=== PATIENT | male | born 1955 | race Caucasian/White ===

== ENCOUNTER → 2017-11-23 | Outpatient (CLI) | payer OTHER | END | disposition home or self-care (01) | LOC: NM 12:45 | DX: I20.9 Angina pectoris, unspecified (principal); I25.2 Old myocardial infarction | CPT/HCPCS: 93017 ==

== ENCOUNTER → 2018-01-01 | Outpatient (CLI) | payer OTHER ==
[2018-01-01 13:12] LABS: ANION GAP 6 (6-14); BLOOD UREA NITROGEN 18 mg/dL (8-26); CALCIUM 8.9 mg/dL (8.5-10.1); CARBON DIOXIDE 30 mmol/L (21-32); CHLORIDE 105 mmol/L (98-107); CREATININE 1.6 mg/dL (0.7-1.3); GFR 43.7; GLUCOSE 97 mg/dL (70-99); POTASSIUM 4.5 mmol/L (3.5-5.1); SODIUM 141 mmol/L (136-145)
== END | disposition home or self-care (01) ==
LOC: SPEC 12:42
DX: I13.0 Hypertensive heart and chronic kidney disease with heart failure and stage 1 through stage 4 chronic kidney disease, or unspecified chronic kidney disease (principal); I50.9 Heart failure, unspecified; N18.9 Chronic kidney disease, unspecified
CPT/HCPCS: 36415; 80048

== ENCOUNTER → 2018-01-02 | Outpatient (CLI) | payer OTHER | END | disposition home or self-care (01) | LOC: US 14:38 | DX: M79.89 Other specified soft tissue disorders (principal) | CPT/HCPCS: 93970 ==

== ENCOUNTER → 2018-01-04 | Outpatient (CLI) | payer OTHER | END | disposition home or self-care (01) | LOC: RAD 11:55 | DX: J98.11 Atelectasis (principal); Z95.1 Presence of aortocoronary bypass graft | CPT/HCPCS: 71046 ==

== ENCOUNTER → 2018-05-03 | Outpatient (CLI) | payer OTHER | END | disposition home or self-care (01) | LOC: KCIC 11:21 | DX: M47.892 Other spondylosis, cervical region (principal); M77.8 Other enthesopathies, not elsewhere classified; I13.0 Hypertensive heart and chronic kidney disease with heart failure and stage 1 through stage 4 chronic kidney disease, or unspecified chronic kidney disease; E11.22 Type 2 diabetes mellitus with diabetic chronic kidney disease; I50.22 Chronic systolic (congestive) heart failure; N18.3 Chronic kidney disease, stage 3 (moderate); I25.10 Atherosclerotic heart disease of native coronary artery without angina pectoris; E78.5 Hyperlipidemia, unspecified; I25.2 Old myocardial infarction; E78.00 Pure hypercholesterolemia, unspecified; Z86.2 Personal history of diseases of the blood and blood-forming organs and certain disorders involving the immune mechanism; Z86.73 Personal history of transient ischemic attack (TIA), and cerebral infarction without residual deficits; Z82.3 Family history of stroke; Z80.3 Family history of malignant neoplasm of breast; Z80.6 Family history of leukemia; Z83.3 Family history of diabetes mellitus | CPT/HCPCS: 72050 ==

== ENCOUNTER → 2018-09-11 | Outpatient (CLI) | payer OTHER ==
[2017-12-11 11:03] VITALS: BP 104/65
[~2018-09-11] MED LIST: ASPI-612 PO; ASPI325T11 PO; ATOR40TA59 PO; FURO40TA4 PO; GLIP10TA13 PO; IBUP-1060 PO; INSU100V13 SQ; LISI1TAB7 PO; METF10007 PO; METF500T16 PO; METO25TA4 PO; OXYC1TAB15 PO; POTA20TA4 PO; PRAV20TA2 PO; [UNRECOGNIZED DRUG - OTHER] PO
--- NOTE | 2018-09-12 08:11 | CARD ---
MR#: [id number] Date of Study: 09/11/2018 Ordering Physician: CARLOS PALAFOX, Referring Physician: CARLOS PALAFOX, Tech: Melissa Daniel APPROVED REPORT EXAM: Two-dimensional and M-mode echocardiogram with Doppler and color Doppler. Other Information Quality : AverageHR: 81bpm INDICATION CAD RISK FACTORS Hypertension Hyperlipidemia Diabetes 2D DIMENSIONS RVDd3.7 (2.9-3.5cm)Left Atrium(2D)3.5 (1.6-4.0cm) IVSd1.4 (0.7-1.1cm)Aortic Root(2D)2.8 (2.0-3.7cm) LVDd4.6 (3.9-5.9cm)LVOT Diameter2.1 (1.8-2.4cm) PWd1.3 (0.7-1.1cm)LVDs2.8 (2.5-4.0cm) FS (%) 39.5 %SV66.8 ml LVEF(%)70.1 (>50%) Aortic Valve AoV Peak Jose.149.1cm/sAoV VTI27.5cm AO Peak GR.8.9mmHgLVOT Peak Jose.103.3cm/s LVOT VTI 20.99cmAO Mean GR.4mmHg JACKELINE (VMAX)1.26ea7PXD (VTI)2.72cm2 Mitral Valve MV E Zqaopwae16.3cm/sMV DECEL HGCM535vv MV A Vkakqgqf097.1cm/sMV RHT84kn E/A Ratio0.7MVA (PHT)2.52cm2 TDI E/Lateral E'6.2E/Medial E'12.2 Pulmonary Valve PV Peak Wnrtmpto521.8cm/sPV Peak Grad.7mmHg Tricuspid Valve RAP [id number] Pulmonary Vein S1 Akhicbyw87.1cm/sD2 Mxxgxtmt98.2cm/s PVa ykcrmrmw432jlwj LEFT VENTRICLE The left ventricle is normal size. There is moderate concentric left ventricular hypertrophy. The lef t ventricular systolic function is normal. The Ejection Fraction is 60-65%. There is normal LV segmen jeramy wall motion. Transmitral Doppler flow pattern is Grade I-abnormal relaxation pattern. RIGHT VENTRICLE The right ventricle is normal size. There is normal right ventricular wall thickness. The right ventr icular systolic function is normal. ATRIA The left atrium size is normal. The right atrium size is normal. The interatrial septum is intact wit h no evidence for an atrial septal defect or patent foramen ovale as noted on 2-D or Doppler imaging. AORTIC VALVE The aortic valve is normal in structure and function. Doppler and Color Flow revealed no significant aortic regurgitation. There is no significant aortic valvular stenosis. MITRAL VALVE The mitral valve is normal in structure and function. There is no evidence of mitral valve prolapse. There is no mitral valve stenosis. Doppler and Color Flow revealed no mitral valve regurgitation note d. TRICUSPID VALVE The tricuspid valve is normal. Doppler and Color Flow revealed trace tricuspid regurgitation. There i s no tricuspid valve stenosis. PULMONIC VALVE The pulmonic valve is not well visualized. Doppler and Color Flow revealed trace to mild pulmonic benigno vular regurgitation. GREAT VESSELS The aortic root is normal in size. The IVC is normal in size and collapses >50% with inspiration. PERICARDIAL EFFUSION There is no evidence of significant pericardial effusion. Critical Notification Critical Value: No <Conclusion> Technically difficult study. The left ventricular systolic function is normal. The Ejection Fraction is 60-65%. There is normal LV segmental wall motion. Transmitral Doppler flow pattern is Grade I-abnormal relaxation pattern. Doppler and Color Flow revealed trace tricuspid regurgitation. There is no evidence of significant pericardial effusion. Signed by : Carlos Palafox, Electronically Approved : 09/12/2018 08:09:59
== END | disposition home or self-care (01) ==
LOC: ECHO 13:48
PROVIDERS: ATTEND Internal Medicine Cardiovascular Disease
DX: I11.9 Hypertensive heart disease without heart failure (principal); I37.1 Nonrheumatic pulmonary valve insufficiency; I25.810 Atherosclerosis of coronary artery bypass graft(s) without angina pectoris; E78.5 Hyperlipidemia, unspecified; E11.9 Type 2 diabetes mellitus without complications
CPT/HCPCS: 93306

== ENCOUNTER → 2018-10-21 | Outpatient (CLI) | payer OTHER ==
[2017-12-11 11:03] VITALS: BP 104/65
[~2018-10-21] MED LIST changes: +CONTRAST GIVEN. MC PRN; +IOHEXOL 300 MG/ML 100ML VIAL. IV ONE
[2018-10-21 10:04] LABS: CREATININE 1.5 mg/dL (0.7-1.3)
--- NOTE | 2018-10-21 10:58 | RAD ---
PQRS Compliance Statement: One or more of the following individualized dose reduction techniques were utilized for this examination: 1. Automated exposure control 2. Adjustment of the mA and/or kV according to patient size 3. Use of iterative reconstruction technique CT chest with contrast October 13, 2017 INDICATION: Chronic cough. COMPARISON: CT chest December 03, 2017 TECHNIQUE: Multiple axial CT images of the chest were obtained after the intravenous demonstration of 60 cc Omnipaque 300. Coronal and sagittal reformats are provided. FINDINGS: The thyroid gland is normal in appearance. There are no pathologically enlarged axillary, mediastinal or hilar lymph nodes. Precarinal lymph node measures 8 mm by short axis with a normal fatty hilum. There is a prevascular lymph node which measures 7 mm by short axis. Bilateral axillary lymph nodes have normal fatty hilus without significant cortical thickening. Median sternotomy changes are present. Heart size is borderline enlarged. There is no pericardial effusion. Ascending thoracic aorta is normal in caliber measuring up to 3.0 cm. Thoracic esophagus is normal in appearance. Bandlike density at the right lung base most favors subsegmental atelectasis. Similar findings are identified in the inferior lingula. No new or enlarging solid noncalcified pulmonary nodules are identified. There are no pleural effusions. No pulmonary vascular congestion or pneumothorax. Focal groundglass change in the right middle lobe is suggestive of visualization of the minor fissure en face. Stable indeterminate hypoattenuating lesion in the right hepatic lobe measuring 13 mm which measures higher than that of simple fluid. Calcified gallstones are identified at the gallbladder. Spleen is nonenlarged. No suspicious pancreatic lesion is identified. Adrenal glands are normal in appearance. No suspicious osseous abnormality is identified. IMPRESSION: 1. Right paratracheal/precarinal lymph node is borderline in size, stable. There is a normal fatty hilum. Findings most favor benign reactive etiology. 2. No new or enlarging solid noncalcified pulmonary nodule is identified. 3. There is subsegmental atelectasis at the right lung base and inferior lingula. 4. Stable hypoattenuating lesion in the right hepatic dome measuring 13 mm. Finding remains indeterminate. 5. Cholelithiasis. Electronically signed by: Ericka Page MD (10/21/2018 10:54 AM) [facility]
== END | disposition home or self-care (01) ==
LOC: CT 15:36
PROVIDERS: ATTEND Family Medicine
DX: J98.11 Atelectasis (principal); K76.89 Other specified diseases of liver; K80.20 Calculus of gallbladder without cholecystitis without obstruction; R59.0 Localized enlarged lymph nodes
CPT/HCPCS: 36415; 71260; 82565; Q9967

== ENCOUNTER → 2019-11-12 | Outpatient (CLI) | payer OTHER ==
[2017-12-11 11:03] VITALS: BP 104/65
[~2019-11-12] MED LIST changes: -CONTRAST GIVEN. MC PRN; -IOHEXOL 300 MG/ML 100ML VIAL. IV ONE; +LISI1TAB20 PO; -LISI1TAB7 PO
--- NOTE | 2019-11-13 13:36 | CARD ---
MR#: [id number] Date of Study: 11/12/2019 Ordering Physician: CARLOS SÁNCHEZ, Referring Physician: CALROS SÁNCHEZ, Tech: Alee Gaming RDCS APPROVED REPORT EXAM: Two-dimensional and M-mode echocardiogram with Doppler and color Doppler. Other Information Quality : AverageHR: 64bpm Rhythm : NSR INDICATION CAD RISK FACTORS Hypertension Obesity Hyperlipidemia Diabetes 2D DIMENSIONS RVDd3.5 (2.9-3.5cm)IVSd1.3 (0.7-1.1cm) Aortic Root(2D)3.3 (2.0-3.7cm)LVDd4.2 (3.9-5.9cm) LVOT Diameter2.1 (1.8-2.4cm)PWd1.4 (0.7-1.1cm) LVDs3.2 (2.5-4.0cm)FS (%) 23.7 % SV37.2 mlLVEF(%)47.8 (>50%) Aortic Valve AoV Peak Jose.122.6cm/Mayuri Peak GR.6.0mmHg LVOT Peak Jose.76.2cm/sAVA (VMAX)2.12cm2 Mitral Valve MV E Zaxsujzx79.8cm/sMV DECEL GMVP768fj MV A Apapiisz070.5cm/sE/A Ratio0.7 MV A Mvkhtkei249gm Pulmonary Valve PV Peak Gevenazg68.5cm/s Tricuspid Valve RAP PCFZREGZ5ezCi Pulmonary Vein S1 Csgdydnf00.3cm/sD2 Bcwjtstj87.1cm/s PVa rytbcfkt26vnuu LEFT VENTRICLE The left ventricle is normal size. Moderate LVH. The left ventricular systolic function is normal and the ejection fraction is within normal range. The Ejection Fraction is 55%. There is normal LV segme ntal wall motion. Septal motion suggestive of prior CABG. Transmitral Doppler flow pattern is Grade I -abnormal relaxation pattern. There is no ventricular septal defect visualized. RIGHT VENTRICLE The right ventricle is normal size. The right ventricular systolic function is normal. ATRIA The left atrium size is normal. The right atrium size is normal. The interatrial septum is intact wit h no evidence for an atrial septal defect or patent foramen ovale as noted on 2-D or Doppler imaging. AORTIC VALVE The aortic valve is normal in structure and function. Doppler and Color Flow revealed no significant aortic regurgitation. There is no significant aortic valvular stenosis. MITRAL VALVE The mitral valve is normal in structure and function. There is no evidence of mitral valve prolapse. There is no mitral valve stenosis. Doppler and Color Flow revealed no mitral valve regurgitation note d. TRICUSPID VALVE The tricuspid valve is normal in structure and function. Doppler and Color Flow revealed no tricuspid valve regurgitation noted. Unable to assess PA pressure. There is no tricuspid valve stenosis. PULMONIC VALVE The pulmonary valve is normal in structure and function. Doppler and Color Flow revealed trace pulmon ic valvular regurgitation. There is no pulmonic valvular stenosis. GREAT VESSELS The aortic root is normal in size. The ascending aorta is normal in size. The IVC is normal in size a nd collapses >50% with inspiration. PERICARDIAL EFFUSION There is no pleural effusion. There is no evidence of significant pericardial effusion. Critical Notification Critical Value: No <Conclusion> The left ventricular systolic function is normal and the ejection fraction is within normal range. Th e Ejection Fraction is 55%. There is normal LV segmental wall motion. Septal motion suggestive of prior CABG. Moderate LVH. Signed by : Art Curtis, Electronically Approved : 11/12/2019 13:27:19
== END | disposition home or self-care (01) ==
LOC: ECHO 10:54
PROVIDERS: ATTEND Internal Medicine Cardiovascular Disease
DX: I25.810 Atherosclerosis of coronary artery bypass graft(s) without angina pectoris (principal)
CPT/HCPCS: 93306

== ENCOUNTER 2022-01-03 06:53 | Observation (INO) | payer MEDICARE, OTHER ==
[2022-01-03] VITALS (18 sets, daily range): BP systolic 115–229; BP diastolic 61–112
[~2022-01-03] VITALS: Ht 177.8 cm; Wt 117.5 kg
[~2022-01-03 06:53] MED LIST changes: -ASPI-612 PO; +ASPI-886 PO; -LISI1TAB20 PO; +LISI1TAB39 PO; +POTA-121 PO; -POTA20TA4 PO
[2022-01-03 07:22] LABS: HEMATOCRIT 35.6 % (39.0-53.0); RED BLOOD COUNT 3.91 x10^6/uL (4.30-5.70); RED CELL DISTRIBUTION WIDTH 13.9 % (11.5-14.5); WHITE BLOOD COUNT 7.4 x10^3/uL (4.0-11.0)
[2022-01-03 07:32] LABS: PROTHROMBIN TIME PATIENT 13.4 SEC (11.7-14.0)
[2022-01-03 07:40] LABS: CALCIUM 8.4 mg/dL (8.5-10.1); CREATININE 2.2 mg/dL (0.7-1.3); GFR 29.9; POTASSIUM 4.1 mmol/L (3.5-5.1)
[2022-01-03] MEDS ORDERED: IODIXANOL 320 MG/ML 100 ML VIAL. ONE ×2 (07:41→09:01)
[2022-01-03] MEDS ORDERED: LIDOCAINE 1% Multi-Dose 20 ML VIAL. ONE (07:41)
[2022-01-03] MEDS ORDERED: HYDR-2145 PO (08:02)
[2022-01-03] MEDS ORDERED: ACET325T9 PO (08:02)
[2022-01-03] MEDS ORDERED: DULA0.75 SQ (08:02)
[2022-01-03] MEDS ORDERED: ASPI-886 PO (08:02)
[2022-01-03] MEDS ORDERED: TAMS0.4C97 PO (08:02)
[2022-01-03] MEDS ORDERED: LABE100T5 PO (08:02)
[2022-01-03] MEDS ORDERED: OLME20TA17 PO (08:02)
[2022-01-03] MEDS ORDERED: fentaNYL PF VIAL 100 MCG/2 ML VIAL ONE (08:18)
[2022-01-03] MEDS ORDERED: MIDAZOLAM HCL/PF 2 MG/2 ML VIAL. ONE (08:18)
[2022-01-03] MEDS ORDERED: BIVALIRUDIN 250 MG VIAL. IVP ONE ×2 (08:57→09:30)
[2022-01-03] MEDS ORDERED: MIDAZOLAM HCL/PF 2 MG/2 ML VIAL. IV ONE (09:30)
[2022-01-03] MEDS ORDERED: LIDOCAINE 2% Multi-Dose 20 ML VIAL. IJ ONE (09:30)
[2022-01-03] MEDS ORDERED: fentaNYL PF VIAL 100 MCG/2 ML VIAL IV ONE (09:30)
[2022-01-03] MEDS ORDERED: IODIXANOL 320 MG/ML 100 ML VIAL. IART ONE (09:30)
[2022-01-03] MEDS ORDERED: CONTRAST GIVEN. MC PRN (09:30)
[2022-01-03] MEDS ORDERED: ASPIRIN 325 MG TABLET PO ONE (09:30)
[2022-01-03] MEDS ORDERED: CLOPIDOGREL BISULFATE 75 MG TABLET PO ONE (09:30)
[2022-01-03] MEDS ORDERED: IV NORMAL SALINE 1000ML BAG 1,000 ML IV SCH (09:45)
--- NOTE | 2022-01-03 09:47 | PDOC ---
MODERATE SEDATION ASSESSMENT RISKS/ALTERNATIVES Risks/Alternatives Risks and alternatives of this type of sedation and procedure discussed with: RISK/ALTERNATIVES: Patient H & P ON CHART H & P H & P on chart and reviewed for co-morbid conditions and appropriate labs. H&P ON CHART: Yes STATUS PREG STATUS ASSESSED: N/A MEDS/ALLERGIES REVIEWED Meds/Allergies Reviewed Medications and Allergies including time and route of recently administered narcotics and sedatives. MEDS/ALLERGIES REVIEWED: Yes ASA RATING ASA RATING: II AIRWAY ASSESSMENT Airway Assessment Airway patency, oral function limitations, presence of caps, crowns, dentures, partials, and ability to extend neck assessed. AIRWAY ASSESSMENT: Yes MALLAMPATI SCORE MALLAMPATI SCORE: II PRE-SEDATION ASSESSMENT PRE-SEDATION ASSESSMENT: Yes CARLOS SÁNCHEZ MD Jan 03, 2022 09:47
[2022-01-03] MEDS ORDERED: ACETAMINOPHEN 325 MG TABLET. PO PRN (10:00)
[2022-01-03] MEDS ORDERED: IV 1/2 NORMAL SALINE 1,000 ML IV SCH (10:00)
--- NOTE | 2022-01-03 10:14 | CARD ---
MR#: [id number] Date of Study: 01/03/2022 Ordering Physician: CARLOS SÁNCHEZ, Referring Physician: CARLOS SÁNCHEZ, Tech: RT Nadira(R) APPROVED REPORT Technologist: RT Nadira(R) Nurse: Rosi Winston RN Procedure(s) performed: 1. Left heart catheterization, selective coronary angiography and selective angiography of the bypass grafts 2. Successful PCI/drug-eluting stent placement to the second obtuse marginal branch of left circumfl ex artery MODERATE SEDATION TIME: 63 MINUTES FLUORO TIME: 21.9 MIN DOSE: 166.5 GYCM2 CONTRAST: 159CC VISI INDICATION The indication(s) include : Unstable angina, positive stress test. [facility] Clinical Frailty Scale [facility] Clinical Frailty Scale: Mildly Frail Heart Failure Heart Failure: No CASE TECHNIQUE IV conscious sedation was used throughout procedure with appropriate monitoring and was performed in the presence of a registered nurse who was an independent trained observer other than the physician p erforming the procedure. During this case, Fluoroscopy and low osmolar contrast were used for imaging . Specimen(s) Removed: No Estimated Blood loss: 15 cc's. PROCEDURE NARRATIVE After explaining the risk, benefits and alternative options, informed consent was obtained from claudinee nt. Patient was brought to the cardiac [employer] and his right groin was prepped and draped in the us ual fashion. 20 cc of 2% lidocaine was infiltrated into the skin and subcutaneous tissues for local anesthesia. Arterial access was obtained in the right common femoral artery and a 6 Irish sheath wa s inserted. 6 Irish JL4 6 Irish JR4 catheters were used to perform selective angiography of the le ft and right coronary arteries. The 6 Irish JR4 catheter was then used to perform selective angiogr aphy of the saphenous vein graft to the left posterolateral branch of left circumflex artery and also the left internal mammary artery graft to the left anterior descending artery. After initial unsucc essful attempts at engaging the graft using 5 Irish LCB catheter, a 6 Irish multipurpose catheter w as used to selectively engage the saphenous vein graft to the diagonal branch and selective angiograp hy was performed. The radial artery graft to the obtuse marginal branch could not be engaged but antonino ears to be chronically occluded based on lack of any competitive flow in his [place] obtuse marginal b ranch. Aortogram was not performed to confirm this secondary to significantly elevated creatinine le marla. LVEDP and transaortic gradients were measured. FINDINGS 1. Hemodynamics: Left ventricular end-diastolic pressure 6 mmHg. No pullback gradient across the ao rtic valve. 2. Coronary and bypass graft angiography a. The left main coronary artery arose from the left sinus of Valsalva, gave rise to the left anteri or descending and left circumflex arteries and did not show any significant stenosis. b. The left and descending artery showed 30% stenosis in the proximal segment and 70% stenosis in th e mid to distal segment. c. The left circumflex artery is a dominant vessel and showed tandem 90 to 95% stenosis in the proxi mal segment of a good caliber second obtuse marginal branch. The left posterolateral branch showed 9 0% stenosis and appears to be a small caliber vessel. d. The right coronary artery was a small and nondominant vessel arising from the right sinus of Vals correa that showed 50% stenosis in the midsegment. e. The left internal mammary artery graft to the left anterior descending artery did not show any si gnificant stenosis. f. The saphenous vein graft to the left posterolateral branch is small and atretic but patent. g. The saphenous vein graft to the diagonal branch of LAD is widely patent. Distal to the anastomos is, the [place] vessel is a small caliber vessel. h. The radial artery graft to the second obtuse marginal branch is occluded. INTERVENTION The left main coronary artery was engaged with a 6 Irish XB 3.5 guide catheter. The tandem stenoses in the proximal segment of the second obtuse marginal branch were crossed with a 0.014 inch Asahi Homer boggsater guidewire. These were predilated with a 2.5 x 15 mm Thumb Reading [employer] Emerge balloon. The le roosevelt was then treated successfully with 2.5 x 38 mm resolute [facility] drug-eluting stent. The midportion of the stent was then postdilated with a 2.5 x 15 mm NC Euphora noncompliant balloon. Follow-up ang iography showed resolution of the stenosis to 0% with WESTLEY-3 distal flow. Patient tolerated the proc edure well. Hemostasis was achieved using Angio-Seal. There were no immediate complications WESTLEY Flow WESTLEY Flow (Pre-Intervention): WESTLEY-2 WESTLEY Flow (Post-Intervention): WESTLEY-3 Conclusion 1. Severe [place] vessel coronary artery disease s/p coronary artery bypass surgery as described abov e with patent CORONA to LAD, atretic SVG to LPL, patent SVG to diagonal and occluded radial artery berto t to OM 2. 2. Successful PCI/drug-eluting stent placement to the second obtuse marginal branch of left circumfl ex artery. Recommendations 1. Aspirin 325 mg daily for 1 month followed by 81 mg daily 2. Plavix 75 mg daily 3. Cardiovascular risk factor modification Signed by : Carlos Sánchez, Electronically Approved : 01/03/2022 10:14:18
--- NOTE | 2022-01-03 10:50 | NUR ---
notified Dr. Contreras of pt's elevated b/p. pt only takes HCTZ for b/p he wants pt to follow up with primary physician . notified pt of this. Addendum: 01/03/22 at 1052 by LAZARUS POOL RN d/c above note- wrong pt chart
--- NOTE | 2022-01-03 11:16 | NUR ---
Patient arrived to room 654 via bed from cvobs after having heart cath at 1116. VSS. No complaints of pain at this time. R groin site CDI. at bedside. The patient, MITCHELL BALDERRAMA, 66 y/o, M admitted by CARLOS SÁNCHEZ MD, was given written information regarding hospital policies, unit procedures and contact persons. Valuables were checked and noted. Will continue to monitor.
[2022-01-03] MEDS: LABETALOL HCL 100 MG TABLET. PO SCH (17:00)
[2022-01-03] MEDS: hydroCHLOROthiazide 25 MG TABLET PO SCH (17:00)
[2022-01-03] MEDS: TAMSULOSIN 0.4 MG CAP.ER.24H. PO SCH (17:00)
--- NOTE | 2022-01-03 18:38 | NUR ---
Patient took his own labetalol & then told RN after. Patient educated to not take his own meds & agreed he would not anymore.
--- NOTE | 2022-01-03 19:40 | NUR ---
Pt in bed assessment completed vss pt c/o headache, will medicate pt poc explained to pt. Pt denied pain at this time groin site clean dry and intact. Call light in reach will resume care and continue to monitor pt.
[2022-01-03] MEDS ORDERED: INSULIN GLARGINE SYRINGE. SQ SCH (21:00)
[2022-01-03] MEDS ORDERED: ATORVASTATIN CALCIUM 40 MG TABLET. PO SCH (21:00)
[2022-01-03] MEDS: ACETAMINOPHEN 325 MG TABLET. PO SCH (21:06)
[2022-01-04 05:22] LABS: CALCIUM 8.6 mg/dL (8.5-10.1); CREATININE 2.1 mg/dL (0.7-1.3); GFR 31.6; POTASSIUM 3.8 mmol/L (3.5-5.1)
[2022-01-04 07:00] VITALS: BP 167/86
[2022-01-04] MEDS ORDERED: ASPIRIN ENTERIC COATED 325 MG TABLET.DR. PO SCH (08:00)
[2022-01-04] MEDS ORDERED: CLOPIDOGREL BISULFATE 75 MG TABLET PO SCH (08:00)
[2022-01-04] MEDS ORDERED: ASPIRIN ENTERIC COATED 81 MG TABLET.DR. PO SCH (09:00)
[2022-01-04] MEDS ORDERED: LOSARTAN POTASSIUM 50 MG TABLET. PO SCH (09:00)
[2022-01-04] MEDS: LABETALOL HCL 100 MG TABLET. PO SCH (09:10)
[2022-01-04] MEDS: hydroCHLOROthiazide 25 MG TABLET PO SCH (09:11)
[2022-01-04] MEDS: TAMSULOSIN 0.4 MG CAP.ER.24H. PO SCH (09:11)
[2022-01-04] MEDS: ACETAMINOPHEN 325 MG TABLET. PO SCH (09:12)
[2022-01-04] MEDS ORDERED: CLOP75TA PO (10:11)
[2022-01-04] MEDS ORDERED: ASPI325T11 PO (10:11)
--- NOTE | 2022-01-04 10:18 | DISCH ---
DISCHARGE INSTRUCTIONS Condition on Discharge Condition on Discharge: Stable Activity After Discharge Activity Instructions for Disc: Other, see below Lifting Instructions after Dis: No heavy lifting, No pulling or pushing, Do not lift >10 pounds Driving Instructions after Dis: Do not drive Weight Bearing Status after Di: Full weight bearing Diet after Discharge Diet after Discharge: Cardiac, Diabetic No Calorie Level Checks after Discharge Checks after discharge: Check blood sugar, ac/hs, Weigh Yourself Daily Contacting the DR. after DC Call your doctor for: Concerns you may have Treatment/Equipment after DC Adaptive Equipment Issued: None SIMON MARKHAM APRN Jan 04, 2022 10:18
--- NOTE | 2022-01-04 10:19 | PDOC3 ---
Discharge Summary Visit Information Date of Admission: Jan 03, 2022 Date of Discharge: Jan 04, 2022 Admitting Diagnosis: Unstable angina Admitting Diagnosis Comment: CAD Hypertension Hyperlipidemia Diabetes, II CKD Final Diagnosis CAD Hypertension Hyperlipidemia Diabetes, II CKD Brief Hospital Course Allergies Allergies Coded Allergies Type Severity Reaction Last Updated Verified Penicillins Allergy Intermediate Rash 12/06/17 Yes Vital Signs Vital Signs Date Time Temp Pulse Resp B/P (MAP) Pulse Ox O2 Delivery O2 Flow Rate FiO2 01/04/22 09:11 85 167/86 01/04/22 07:00 98.1 19 96 Room Air 98.1 01/03/22 09:38 2.0 Lab Results Laboratory Tests Test 01/03/22 07:10 01/03/22 21:04 01/04/22 03:35 01/04/22 07:52 White Blood Count 7.4 x10^3/uL (4.0-11.0) Red Blood Count 3.91 x10^6/uL (4.30-5.70) Hemoglobin 12.0 g/dL (13.0-17.5) Hematocrit 35.6 % (39.0-53.0) Mean Corpuscular Volume 91 fL (79-100) Mean Corpuscular Hemoglobin 31 pg (25-35) Mean Corpuscular Hemoglobin Concent 34 g/dL (31-37) Red Cell Distribution Width 13.9 % (11.5-14.5) Platelet Count 153 x10^3/uL (140-400) Prothrombin Time 13.4 SEC (11.7-14.0) Prothromb Time International Ratio 1.1 (0.8-1.1) Sodium Level 141 mmol/L (136-145) 142 mmol/L (136-145) Potassium Level 4.1 mmol/L (3.5-5.1) 3.8 mmol/L (3.5-5.1) Chloride Level 105 mmol/L (98-107) 106 mmol/L (98-107) Carbon Dioxide Level 28 mmol/L (21-32) 26 mmol/L (21-32) Anion Gap 8 (6-14) 10 (6-14) Blood Urea Nitrogen 40 mg/dL (8-26) 30 mg/dL (8-26) Creatinine 2.2 mg/dL (0.7-1.3) 2.1 mg/dL (0.7-1.3) Estimated GFR (Cockcroft-Gault) 29.9 31.6 Glucose Level 157 mg/dL (70-99) 75 mg/dL (70-99) Calcium Level 8.4 mg/dL (8.5-10.1) 8.6 mg/dL (8.5-10.1) Glucose (Fingerstick) 261 mg/dL (70-99) 72 mg/dL (70-99) Laboratory Tests Test 01/03/22 21:04 01/04/22 03:35 01/04/22 07:52 Glucose (Fingerstick) 261 mg/dL (70-99) 72 mg/dL (70-99) Sodium Level 142 mmol/L (136-145) Potassium Level 3.8 mmol/L (3.5-5.1) Chloride Level 106 mmol/L (98-107) Carbon Dioxide Level 26 mmol/L (21-32) Anion Gap 10 (6-14) Blood Urea Nitrogen 30 mg/dL (8-26) Creatinine 2.1 mg/dL (0.7-1.3) Estimated GFR (Cockcroft-Gault) 31.6 Glucose Level 75 mg/dL (70-99) Calcium Level 8.6 mg/dL (8.5-10.1) Brief Hospital Course Mr. Au is a 66 old male who presented for elective coronary angiogram secondary to unstable angina and positive stress test. Cardiac catheterization revealed severe saxman vessel coronary artery disease s/p coronary artery bypass surgery with patent CORONA to LAD, atretic SVG to LPL, patent SVG to diagonal and occluded radial artery graft to OM 2. Patient underwent successful PCI/drug- eluting stent placement to the second obtuse marginal branch of left circumflex artery. Patient tolerate procedure well and was monitored overnight without complications. Patient seen and examined. Agree with ROOMING HOUSE KEEPER's assessment and plan Cardiac cath results noted above s/p PCI/PATRICK to OM/LCX, CP free and without any arrhythmias Continue DAPT and current secondary prevention measures Follow up as scheduled Assessment Assessment Alert and oriented x3 Lungs CTA Heart tones regular Abdomen soft Right groin arteriotomy site soft, clean, and dry. No hematoma present. Neurovascular status intact No LE edema Discharge Information Condition at Discharge: Stable Follow Up: Weeks (March 01 as scheduled ) Disposition/Orders: D/C to Home Scheduled Acetaminophen (Tylenol) 325 Mg Tablet, 2 TAB PO BID for rx, #60 Ref 2 (Reported) Entered as Reported by: LAZARUS POOL on 01/03/22 08 Last Taken: Unknown Dose on 01/03/22 Last Action: Continued on 01/03/221604 by SIMON MARKHAM APRN Aspirin (Aspirin Ec) 325 Mg Tablet.dr, 325 MG PO DAILYWBKFT for CAD for 30 Days, #30 Take 325mg for 1 month and then 81mg thereafter Prescribed by: SIMON MARKHAM APRN on 01/04/22 1011 Atorvastatin Calcium (Atorvastatin Calcium) 40 Mg Tablet, 40 MG PO QHS, #30 Ref 1 Prescribed by: SHAHIDA DUTTA on 12/10/17 1630 Last Action: Continued on 01/03/221604 by SIMON MARKHAM APRN Clopidogrel Bisulfate (Clopidogrel) 75 Mg Tablet, 75 MG PO DAILYWBKFT for CAD, #30 Ref 3 Prescribed by: SIMON MARKHAM APRN on 01/04/22 1011 Dulaglutide (Trulicity) 0.75 Mg/0.5 Ml Pen.injctr, 0.75 MG SQ WEEKLY for rx, (Reported) takes on Fridays Entered as Reported by: LAZARUS POOL on 01/03/22801 Last Action: Reviewed on 01/03/22 1327 by JAELYN SUTHERLAND Hydrochlorothiazide (Hydrochlorothiazide Tablet ) 25 Mg Tablet, 25 MG PO DAILY for DIURETIC, Ref 0 (Reported) Entered as Reported by: LAZARUS POOL on 01/03/22 08 Last Taken: Unknown Dose on 01/02/22 Last Action: Continued on 01/03/221604 by SIMON MARKHAM APRN Insulin Detemir (Levemir) 100 Unit/1 Ml Vial, 75 UNIT SQ HS for dm, (Reported) Entered as Reported by: JOSE JUAN EDWARDS on 11/30/17 1229 Last Action: Converted on 01/03/221604 by SIMON MARKHAM APRN Labetalol Hcl (Labetalol Hcl) 100 Mg Tablet, 1 TAB PO BID for rx, #60 Ref 5 (Reported) Entered as Reported by: LAZARUS POOL on 01/03/22 08 Last Taken: Unknown Dose on 01/03/22 Last Action: Continued on 01/03/221604 by SIMON MARKHAM APRN Metformin Hcl (Metformin Hcl) 1,000 Mg Tablet, 1,000 MG PO BID AC for ANTI- DIABETIC, Ref 0 (Reported) Entered as Reported by: JOSE JUAN EDWARDS on 11/30/17 1224 Last Action: HELD on 01/03/221604 by SIMON MARKHAM APRN Olmesartan Medoxomil (Benicar) 20 Mg Tablet, 1 TAB PO DAILY for rx for 30 Days, #30 Ref 0 (Reported) Entered as Reported by: LAZARUS POOL on 01/03/22801 Last Taken: Unknown Dose on 01/03/22 Last Action: Converted on 01/03/221604 by SIMON MARKHAM APRN Tamsulosin Hcl (Flomax) 0.4 Mg Cap.er.24h, 1 CAP PO DAILY for rx, #30 Ref 11 (Reported) Entered as Reported by: LAZARUS POOL on 01/03/22801 Last Taken: Unknown Dose on 01/02/22 Last Action: Continued on 01/03/221604 by SIMON MARKHAM APRN Discontinued Medications Aspirin (Aspirin Ec) 81 Mg Tablet.dr, 1 TAB PO DAILY for rx, #30 Ref 3 (Reported) Entered as Reported by: LAZARUS POOL on 01/03/22801 Last Taken: Unknown Dose on 01/03/22 Last Action: Continued on 01/03/221604 by SIMON MARKHAM APRN Patient Instructions Patient Instructions GENERAL INSTRUCTIONS: 1. Your dressing should be removed prior to leaving the hospital. 2. It is OK to shower the day after your procedure. 3. If you received stents, be sure to carry your stent information card with you in your wallet/purse at all times. 4. Call the office immediately at [phone] if you notice any fever or if there is redness, worsening tenderness/pain, increased bruising, or drainage from the puncture site. 5. Should you have bleeding from the site, lie down immediately & put pressure on the site. The pressure should be hard enough to stop the bleeding. Have the nearest person call 911. DO NOT try to drive to the ER with active bleeding. 6. If you notice a change in color, coolness to touch, or loss of feeling in the affected extremity, come to the emergency room. Please have someone drive you or call 911 if no one is available. DO NOT drive yourself. 7. If you normally take glucophage (metformin), please do not take this medicine for 48 hours following your procedure. 8. DO NOT STOP TAKING YOUR PLAVIX OR ASPIRIN UNLESS IT IS CLEARED BY A BOLT MAN OF YOUR CLINICAL ORTHOPTIST AT OUR OFFICE. 9. QUIT SMOKING: the [place] [employer], [employer], & [employer] have cessation resources available on their websites 10. Please have someone available to drive you home from the hospital as you may be limited by sedation medications given during the procedure. Femoral (Groin) access: 1. Do no lifting, pushing, pulling, bending, stooping, or recurrent stair climbing for 3 days following your procedure. 2. Once past the first 3 days, do not do any HEAVY exertion or lifting for one week following the procedure. No gym workouts, running, lifting greater than a gallon of milk, etc 3. Do not submerge in bath or pool for one week. OK to drive 3 days following your procedure, but if going long distance, do not go alone & take hourly breaks to get out of car and walk around. Radial Artery (Wrist) access: 1. No pushing, pulling, lifting, typing, or anything that requires repetitive use/movement of the affected wrist for 3 days following your procedure. 2. OK to drive the day following your procedure. (This is because of effects of sedating medications.) Call the office at [phone] for any questions or concerns. Justicifation of Admission Dx: Justifications for Admission: Justification of Admission Dx: Yes Comments: Unstable angina CAD s/p PCI/SIMON SANTIAGO APRN Jan 04, 2022 10:19 CARLOS SÁNCHEZ MD Jan 04, 2022 21:26
[2022-01-04 10:50] VITALS: BP 167/76
== END 2022-01-04 12:40 | disposition home or self-care (01) ==
LOC: CCL 06:53 → 6 SOUTH 09:30 → INTOOBSV 09:30
PROVIDERS: ADMIT Internal Medicine Cardiovascular Disease; ATTEND Internal Medicine Cardiovascular Disease
DX: I20.0 Unstable angina (principal); R94.39 Abnormal result of other cardiovascular function study; I12.9 Hypertensive chronic kidney disease with stage 1 through stage 4 chronic kidney disease, or unspecified chronic kidney disease; N18.9 Chronic kidney disease, unspecified; E11.22 Type 2 diabetes mellitus with diabetic chronic kidney disease; E78.5 Hyperlipidemia, unspecified; Z95.1 Presence of aortocoronary bypass graft; Z79.82 Long term (current) use of aspirin
CPT/HCPCS: 36415; 80048; 82962; 85027; 85610; 92928; 93459; 99152; 99153; C1725; C1760; C1769; C1874; C1887; C1894; G0269; G0378; G0379; J0583; J1644; J1815; J2250; J3010; J7030; Q9967

== ENCOUNTER → 2022-01-10 | Outpatient (CLI) | payer MEDICARE, OTHER ==
[2022-01-04 10:50] VITALS: BP 167/76
[~2022-01-10] MED LIST changes: +ACET325T9 PO; +CLOP75TA PO; +DULA0.75 SQ; +HYDR-2145 PO; +LABE100T5 PO; +OLME20TA17 PO; +TAMS0.4C97 PO
--- NOTE | 2022-01-11 17:13 | RAD ---
MR#: [id number] Date of Study: 01/10/2022 Ordering Physician: CARLOS PALAFOX, Referring Physician: CARLOS PALAFOX, Tech: Shiv Tomas MBA, RDMS, RVT, RDCS, RTR APPROVED REPORT Patient Location: OUT-PATIENT Indications LEG PAIN Findings The right ankle-brachial index is normal at 1.2. The left ankle-brachial index is also within normal limits at 1.2. No significant peripheral artery stenosis noted based on ABIs. Critical Notification Critical Value: No <Conclusion> Bilateral lower extremity ankle-brachial indices within normal limits without any evidence of signifi cant peripheral artery stenosis. Signed by : Carlos Palafox, Electronically Approved : 01/11/2022 17:12:48
--- NOTE | 2022-01-11 17:15 | RAD ---
MR#: [id number] Date of Study: 01/10/2022 Ordering Physician: CARLOS PALAFOX, Referring Physician: CARLOS PALAFOX, Tech: Shiv Tomas MBA, RDMS, RVT, RDCS, RTR APPROVED REPORT Patient Location: OUT-PATIENT Indications LEG PAIN VELOCITY AND DOPPLER WAVEFORM ANALYSIS RIGHT cm/secWaveformSeverity LEFT cm/secWaveform Severity dCFA 111.0TriphasicdCFA 102.0Triphasic Prof Fem Art. 62.0BiphasicProf Fem Art. 37.0Biphasic Fem Art Prox. 111.0TriphasicFem Art Prox. 95.0Triphasic Fem Art Mid. 98.0TriphasicFem Art Mid. 79.0Triphasic Fem Art Dist. 86.0TriphasicFem Art Dist. 63.0Triphasic Pop Art(Fossa) 65.0TriphasicPop Art(AK) 69.0Triphasic BEEHIVE KILN SUPERVISOR Prox. 91.0TriphasicPTA Prox. 87.0Triphasic BEEHIVE KILN SUPERVISOR Dist. 99.0TriphasicPTA Dist. 98.0Triphasic Per Art Mid. 94.0TriphasicPer Art Mid. 77.0Biphasic VINCENT Prox. 63.0TriphasicATA Prox. 70.0Biphasic DPA 118TriphasicDPA 75Biphasic Findings Grayscale images of peripheral arteries bilateral lower extremities showed mild diffuse atheroscleros is. Spectral waveform and color duplex analysis showed normal velocities with triphasic and biphasic waveforms in bilateral common femoral, deep femoral, superficial femoral, popliteal arteries. There is three-vessel runoff below the knee bilaterally with normal velocities, triphasic waveforms right lower extremity and biphasic waveforms left lower extremity. No significant peripheral artery stenos is was noted. Critical Notification Critical Value: No <Conclusion> Bilateral lower extremity arterial duplex scan did not show any significant peripheral artery stenosi s. Signed by : Carlos Palafox, Electronically Approved : 01/11/2022 17:14:38
== END ==
LOC: US 13:01
PROVIDERS: ATTEND Internal Medicine Cardiovascular Disease
DX: I70.203 Unspecified atherosclerosis of native arteries of extremities, bilateral legs (principal)
CPT/HCPCS: 93922; 93925